=== PATIENT | female | born 1970 | race Caucasian/White ===

== ENCOUNTER 2018-04-11 19:02 | Emergency (ER) | payer MEDICAID, OTHER ==
[~2018-04-11] VITALS: Ht 172.7 cm; Wt 105.3 kg
[2018-04-11 19:07] VITALS: BP 147/101
[2018-04-11 20:09] LABS: CULTURE INDICATED? YES; MICROSCOPIC INDICATED
[2018-04-11 20:17] LABS: CLUE CELLS PRESENT (NONE SEEN); WET PREP WBCS FEW (FEW)
[2018-04-11] MEDS ORDERED: AZITHROMYCIN 250 MG TABLET PO ONE (20:30)
[2018-04-11] MEDS ORDERED: CEFTRIAXONE 250 MG IM ONE (20:30)
[2018-04-11] MEDS ORDERED: CEFTRIAXONE 250 MG ONE (20:45)
[2018-04-11] MEDS ORDERED: AZITHROMYCIN 250 MG TABLET ONE (20:46)
== END 2018-04-11 21:21 | disposition home or self-care (01) ==
LOC: ED 20:47
DX: N89.8 Other specified noninflammatory disorders of vagina (principal); R30.0 Dysuria; Z90.710 Acquired absence of both cervix and uterus; Z90.89 Acquired absence of other organs; Z85.850 Personal history of malignant neoplasm of thyroid; Z87.42 Personal history of other diseases of the female genital tract
CPT/HCPCS: 81001; 81025; 87086; 87210; 87491; 87591; 87808; 96372; 99283; J0696

== ENCOUNTER 2019-10-22 15:27 | Emergency (ER) | payer OTHER ==
[~2019-10-22] VITALS: Ht 172.7 cm; Wt 91.2 kg
[2019-10-22 15:29] VITALS: BP 135/76
== END 2019-10-22 16:34 | disposition home or self-care (01) ==
LOC: ED 16:20
DX: B00.1 Herpesviral vesicular dermatitis (principal); R21 Rash and other nonspecific skin eruption; Z87.891 Personal history of nicotine dependence; Z90.89 Acquired absence of other organs; Z90.710 Acquired absence of both cervix and uterus; Z85.850 Personal history of malignant neoplasm of thyroid; Z86.39 Personal history of other endocrine, nutritional and metabolic disease
CPT/HCPCS: 99283

== ENCOUNTER 2019-12-01 16:49 | Emergency (ER) | payer OTHER ==
[~2019-12-01] VITALS: Ht 172.7 cm; Wt 92.4 kg
--- NOTE | 2019-12-01 17:18 | NUR ---
PT. REFUSED WHEELCHAIR.
[2019-12-01] MEDS ORDERED: KETOROLAC 30 MG/1 ML IM ONE (17:30)
[2019-12-01] MEDS ORDERED: HYDROmorphone 2 MG/ML, 1ML IM ONE (17:30)
--- NOTE | 2019-12-01 17:35 | NUR ---
PT IN RAD
[2019-12-01] MEDS ORDERED: HYDROmorphone 1 MG/ML, 1ML INJ ONE (17:38)
[2019-12-01] MEDS ORDERED: KETOROLAC 30 MG/1 ML ONE (17:38)
--- NOTE | 2019-12-01 18:15 | NUR ---
PT AWARE SHE WILL NOT BE ABLE TO DRIVE AFTER RECEIVING ORDERED NARC PAIN MEDS. PT STATED SHE HAS 4 PEOPLE SHE CAN CALL AND WILL GET A SAFE RIDE HOME
--- NOTE | 2019-12-01 18:55 | NUR ---
REPORT TO RHETT ROJO
[2019-12-01 19:08] VITALS: BP 115/76
== END 2019-12-01 19:11 | disposition home or self-care (01) ==
LOC: ED 19:00
DX: M54.16 Radiculopathy, lumbar region (principal); F17.200 Nicotine dependence, unspecified, uncomplicated; Z90.89 Acquired absence of other organs; Z90.710 Acquired absence of both cervix and uterus; Z85.850 Personal history of malignant neoplasm of thyroid; Z85.41 Personal history of malignant neoplasm of cervix uteri
CPT/HCPCS: 72110; 96372; 99284; J1170; J1885